=== PATIENT | male | born 2000 | race Caucasian/White ===

== ENCOUNTER 2022-09-26 04:26 | Emergency (ER) | payer MEDICAID, SELFPAY ==
[2022-09-26 04:37] VITALS: BP 127/82; PULSE 74; RESP 18; TEMP 36.6; O2SAT 100; BMI 26.6
[2022-09-26 04:39] VITALS: BP 140/83; PULSE 83; RESP 14; O2SAT 100
--- NOTE | 2022-09-26 04:55 | XRR_ITS ---
PROCEDURE INFORMATION: Exam: XR Lumbosacral Spine Exam date and time: 09/26/2022 5:13 AM Age: 22 years old Clinical indication: Low back pain; Patient HX: Lifting injury per patient with pain that radiates to RT hip. ; Additional info: R lumbar radiculopathy TECHNIQUE: Imaging protocol: Radiologic exam of the lumbosacral spine. Views: 2 or 3 views. COMPARISON: No relevant prior studies available. FINDINGS: Bones/joints: Normal. No acute fracture. Normal alignment. Soft tissues: Unremarkable. XR/XR lumbar spine 2-3V* [id number] IMPRESSION: No acute findings.
[2022-09-26 05:08] LABS: Basophils % 0.5 %; Eosinophils # 0.1 10^3/uL (0.0-0.8); Eosinophils % 1.4 %; Hemoglobin 14.1 g/dL (11.7-16.6); Lymphocytes # 2.4 10^3/uL (0.8-4.8); Lymphocytes % 38.4 %; Mean Corpuscular HGB Conc 32.8 g/dL (30.0-36.0); Mean Corpuscular Hemoglobin 28.3 pg (28.0-34.0); Mean Corpuscular Volume 86.2 fl (80-94); Mean Platelet Volume 8.7 fL (7.4-10.4); Monocytes # 0.4 10^3/uL (0.2-0.9); Monocytes % 7.1 %; Neutrophils # 3.27 10^3/uL (1.8-7.7); Neutrophils % 52.4 %; Nucleated Red Blood Cells % 0 %; Platelet Count 294 10^3/cmm (130-400); Red Blood Count 4.99 10^6/uL (4.1-5.3); Red Cell Distribution Width 12.7 % (12.1-15.1); White Blood Count 6.2 10^3/uL (4.0-10.0)
[2022-09-26] MEDS: dexamethasone 10 mg/mL INJ IVP (05:09)
[2022-09-26 05:10] VITALS: RESP 18
[2022-09-26] MEDS: morphine 4 mg/mL SDV 1 mL IVP (05:10)
[2022-09-26 05:30] LABS: Alanine Aminotransferase 11 U/L (0-41); Albumin Level 4.2 g/dL (3.5-5.2); Alkaline Phosphatase 102 U/L (40-130); Anion Gap 15.4 (5-19); Aspartate Amino Transferase 18 U/L (0-40); Blood Urea Nitrogen 9 mg/dL (6-20); Calcium 9.3 mg/dL (8.5-10.5); Carbon Dioxide 26 mmol/L (22-29); Chloride 102 mmol/L (98-107); Globulin 3.2 g/dL (1.3-4.6); Glomerular Filtration Rate 120.9 mL/min (90-130); Glucose 80 mg/dL (65-115); Osmolality Calculated 286 mOsm/kg (285-295); Potassium 4.4 mmol/L (3.5-5.1); Sodium 139 mmol/L (136-145); Total Bilirubin 0.3 mg/dL (0.15-1.2); Total Protein 7.4 g/dL (6.6-8.7)
[2022-09-26 05:36] LABS: Acetaminophen < 5.0 ug/mL (10-30)
[2022-09-26 05:57] VITALS: BP 117/75; PULSE 82; RESP 14; O2SAT 100
--- NOTE | 2022-09-26 06:11 | W.ED.BACK ---
HPI - Back Pain/Injury General: Chief Complaint: Back Pain/Injury Stated Complaint: back pain radiates to lower leg Time Seen by Provider: 09/26/22 04:44 Source: patient History of Present Illness: 22-year-old male who hurt his back several days ago helping a friend move. He complains of lower back pain on the right side radiating to his right thigh and just below his knee. He has had some numbness on and off. No weakness. No foot drop or dragging. No saddle anesthesia. No loss of control of bowel or bladder function. The patient admits to nursing staff that he is taken 20 of those little ibuprofen pills last evening over a few hours to try to improve the pain. MD elicited complaint: back pain and back injury Pertinent past history: other Onset (ago): day(s) Timing: constant Severity: moderate Quality: sharp Location: lumbar spine Radiation: right leg below the knee Exacerbating factors: movement Relieving factors: medication Associated symptoms: Reports tingling/numbness/burning; Deny abdominal pain, fecal incontinence, fever(s), nausea, urinary frequency, urinary urgency, vomiting or weakness Review of Systems Const: Denies: fever(s) Card: Denies: chest pain Resp: Denies: dyspnea GI: Denies: abdominal pain, nausea, vomiting or fecal incontinence : Denies: flank pain, urinary urgency or urinary dribbling Neuro: Denies: headache(s), weakness in extremities or frequent falls Physical Exam Const: COMMON NORMALS: no acute distress GENERAL APPEARANCE: cooperative; not ill appearing and not frail appearing HENMT: COMMON NORMALS: normocephalic, atraumatic and Normal external nose present HEAD & SCALP: normocephalic and atraumatic FACE & SINUS: normal facial exam and face symmetric NOSE: Normal external nose present Eye: COMMON NORMALS: Equal, round and reactive pupils present and EOMs intact bilaterally PUPIL: Yes Equal, round and reactive pupils present Neck/C-Spine: GENERAL: Yes trachea midline Chest: CHEST: Yes Symmetrical chest wall rise Resp: COMMON NORMALS: normal respiratory effort, No retractions, No use of accessory muscles and clear to auscultation bilaterally AUSCULTATION: clear to auscultation bilaterally Cardio: COMMON NORMALS: regular rate and regular rhythm RATE: regular rate RHYTHM: regular rhythm GI: COMMON NORMALS: Normal to inspection, nondistended, normoactive bowel sounds present Back/Pelvis: LUMBAR SPINE/LOWER BACK: Yes normal to inspection, No paraspinal muscle tenderness, No paraspinal muscle spasm and Yes straight leg raise positive right PELVIS: Yes buttocks normal and Yes no pain with lateral compression SACROILIAC JOINTS: Yes SI joint(s) abnormal SI joint details: tender to palpation (right) Extremity: COMMON NORMALS: no pedal edema Neuro: CHRISTIAN COMA SCALE: document GCS findings [place] coma scale eye opening: Spontaneous Christian coma scale verbal response: Orientated Christian coma scale motor response: Obey commands Christian coma scale total score: 15 SENSORY EXAM: Yes extremities (intact) Psych: COMMON NORMALS: speech normal SPEECH: Yes normal speech Skin: COMMON NORMALS: no rashes or lesions noted GENERAL SKIN EXAM: no rashes or lesions noted Course Vital Signs: Vital signs: Vital Signs Temperature 98 F 09/26/22 04:37 Pulse Rate 82 09/26/22 05:57 Respiratory Rate 14 09/26/22 05:57 Blood Pressure 117/75 09/26/22 05:57 Pulse Oximetry 100 09/26/22 05:57 Oxygen Delivery Me thod Room Air 09/26/22 04:39 MDM - Back Pain/Injury Medical Decision Making X-ray is nonacute. Renal function is normal. Tylenol and salicylate levels are normal as well. Clinically, I doubt that he took a substantial dose of ibuprofen. He will be allowed home for treatment of lumbar radiculopathy. He is encouraged not to use ibuprofen. He is to use Toradol as prescribed as well as a tapering dose of steroid for radicular pain. Labs 09/26/22 05:00 09/26/22 05:00 Radiology Impressions Lumbar Spine X-Ray 09/26/22 04:55 IMPRESSION: No acute findings. Laboratory Results WBC 6.2 10^3/uL (4.0-10.0) 09/26/22 05:00 RBC 4.99 10^6/uL (4.1-5.3) 09/26/22 05:00 Hgb 14.1 g/dL (11.7-16.6) 09/26/22 05:00 Hct 43.0 % (42.0-52.0) 09/26/22 05:00 MCV 86.2 fl (80-94) 09/26/22 05:00 MCH 28.3 pg (28.0-34.0) 09/26/22 05:00 MCHC 32.8 g/dL (30.0-36.0) 09/26/22 05:00 RDW 12.7 % (12.1-15.1) 09/26/22 05:00 Plt Count 294 10^3/cmm (130-400) 09/26/22 05:00 MPV 8.7 fL (7.4-10.4) 09/26/22 05:00 Neut % (Auto) 52.4 % 09/26/22 05:00 Lymph % (Auto) 38.4 % 09/26/22 05:00 Ware % (Auto) 7.1 % 09/26/22 05:00 Eos % (Auto) 1.4 % 09/26/22 05:00 Baso % (Auto) 0.5 % 09/26/22 05:00 Neut # (Auto) 3.27 10^3/uL (1.8-7.7) 09/26/22 05:00 Lymph # (Auto) 2.4 10^3/uL (0.8-4.8) 09/26/22 05:00 Ware # (Auto) 0.4 10^3/uL (0.2-0.9) 09/26/22 05:00 Eos # (Auto) 0.1 10^3/uL (0.0-0.8) 09/26/22 05:00 Baso # (Auto) 0.0 10^3/uL (0.0-0.1) 09/26/22 05:00 Nucleated RBC % (auto) 0 % 09/26/22 05:00 Nucleated RBCs # 0.0 /100WBC 09/26/22 05:00 Sodium 139 mmol/L (136-145) 09/26/22 05:00 Potassium 4.4 mmol/L (3.5-5.1) 09/26/22 05:00 Chloride 102 mmol/L (98-107) 09/26/22 05:00 Carbon Dioxide 26 mmol/L (22-29) 09/26/22 05:00 Anion Gap 15.4 (5-19) 09/26/22 05:00 BUN 9 mg/dL (6-20) 09/26/22 05:00 Creatinine 0.8 mg/dL (0.7-1.2) 09/26/22 05:00 GFR Calculation 120.9 mL/min (90-130) 09/26/22 05:00 Glucose 80 mg/dL (65-115) 09/26/22 05:00 Calculated Osmolality 286 mOsm/kg (285-295) 09/26/22 05:00 Calcium 9.3 mg/dL (8.5-10.5) 09/26/22 05:00 Total Bilirubin 0.3 mg/dL (0.15-1.2) 09/26/22 05:00 AST 18 U/L (0-40) 09/26/22 05:00 ALT 11 U/L (0-41) 09/26/22 05:00 Alkaline Phosphatase 102 U/L (40-130) 09/26/22 05:00 Total Protein 7.4 g/dL (6.6-8.7) 09/26/22 05:00 Albumin 4.2 g/dL (3.5-5.2) 09/26/22 05:00 Globulin 3.2 g/dL (1.3-4.6) 09/26/22 05:00 Urine Color Yellow (Yellow) 09/26/22 05:49 Urine Appearance Clear (CLEAR) 09/26/22 05:49 Urine pH 6 (5-7) 09/26/22 05:49 Ur Specific [employer] 1.020 (1.005-1.030) 09/26/22 05:49 Urine Protein Neg (Negative) 09/26/22 05:49 Urine Glucose (UA) Norm (Normal) 09/26/22 05:49 Urine Ketones Negative (Negative) 09/26/22 05:49 Urine Blood Neg (Negative) 09/26/22 05:49 Urine Nitrate Negative (Negative) 09/26/22 05:49 Urine Bilirubin Neg (Negative) 09/26/22 05:49 Urine Urobilinogen Norm mg/dL (Negative) 09/26/22 05:49 Ur Leukocyte Esterase Negative (Negative) 09/26/22 05:49 Salicylates 3.0 mg/dL (3-10) 09/26/22 05:00 Urine Opiates Screen Positive ng/mL (Negative) H 09/26/22 05:49 Acetaminophen < 5.0 ug/mL (10-30) L 09/26/22 05:00 Ur Barbiturates Screen Negative ng/mL (Negative) 09/26/22 05:49 Ur Phencyclidine Scrn Negative ng/mL (Negative) 09/26/22 05:49 Ur Amphetamines Screen Positive ng/mL (Negative) H 09/26/22 05:49 U Benzodiazepines Scrn Negative ng/mL (Negative) 09/26/22 05:49 Urine Cocaine Screen Negative ng/mL (Negative) 09/26/22 05:49 U Marijuana (THC) Screen Positive ng/mL (Negative) H 09/26/22 05:49 Discharge Plan Discharge Patient Disposition: Home Clinical Impression: Lumbar radiculopathy Condition: Stable Prescriptions: New ketorolac 10 mg tablet 10 mg PO TID PRN (Reason: pain) Qty: 10 0RF Medrol (Josue) 4 mg tablets,dose pack See Rx Instructions .ROUTE .COMPLEX Qty: 21 0RF Rx Instructions: orally per package directions Discharge Orders: Discharge ED (Routine); Ordered 09/26/22 Ordered By: Jermaine Duran Referrals: Sy Gary MD [Primary Care Provider] - 4-7 days Patient Instructions: Lumbar Radiculopathy (ED), Opioid Safety, Pain Management Activity Restrictions/Additional Instructions: No bending, stooping, or heavy lifting for the next 3 days. Ice and/or heat may help. Do not take ibuprofen or Aleve or other medications with the medications prescribed. Use medications as prescribed. Return for loss of sensation to your genital area, progressive weakness of the lower extremity or extremities, inability to control your bowel or bladder function, other concerning symptoms. Follow-up with your doctor this week. Coding Level of Care Code ED Foot And Ankle Surgeon for Divina Dejesus
[2022-09-26 06:24] LABS: Add Urine Microscopic? NO; Charge for UA Resulting for Rev
[2022-09-26 06:47] LABS: Bilirubin Urine Neg (Negative); Blood Urine Neg (Negative); Glucose Urine UA Norm (Normal); Ketones Urine Negative (Negative); Leukocyte Esterase Urine Negative (Negative); Nitrate Urine Negative (Negative); Protein Urine Neg (Negative); Urine Appearance Clear (CLEAR); Urine Color Yellow (Yellow); Urobilinogen Urine Norm (Negative); pH Urine 6 (5-7)
[2022-09-26 07:33] LABS: Amphetamines Screen Urine Positive (Negative); Barbiturates Screen Urine Negative (Negative); Benzodiazepines Screen Urine Negative (Negative); Cocaine Screen Urine Negative (Negative); Opiate Screen Urine Positive (Negative); PCP Screen Urine Negative (Negative); THC Screen Urine Positive (Negative)
== END 2022-09-26 06:08 | disposition home or self-care (01) ==
PROVIDERS: Emergency Provider Emergency Medicine; PCP Family Medicine
DX: M54.16 Radiculopathy, lumbar region (principal)
CPT/HCPCS: 72100; 80053; 80306; 80307; 81003; 85025; 96374; 96375; 99284; J1100; J2270